=== PATIENT | female | born 1940 | race Caucasian/White ===

== ENCOUNTER 2023-12-07 15:55 | Emergency (ER) | payer MEDICARE ==
[~2023-12-07] VITALS: Ht 170.2 cm; Wt 45.4 kg
[2023-12-07 16:05] VITALS: PULSE 71; RESP 17; TEMP 97.6; O2SAT 98
[2023-12-07] MEDS: DEXAMETHASONE SOD PHOS 10 MG/1 ML VIAL IM ONE (16:36)
[2023-12-07] MEDS ORDERED: ULTRAM 50MG50 MG PO (18:16)
== END 2023-12-07 18:25 | disposition home or self-care (01) ==
LOC: ER 16:34
DX: M25.511 Pain in right shoulder (principal); I10 Essential (primary) hypertension; E78.5 Hyperlipidemia, unspecified; I25.10 Atherosclerotic heart disease of native coronary artery without angina pectoris
CPT/HCPCS: 73030; 73060; 73080; 99283; J1100